=== PATIENT | female | born 1960 | race Caucasian/White ===

== ENCOUNTER → 2016-09-29 | Outpatient (CLI) | payer OTHER ==
[~2016-09-29] MED LIST: MULTTAB67 PO
[2016-09-29 07:17] LABS: BACTERIA, URINE OCC /hpf; BLOOD, URINE NEG (NEG); COMMENT (UR) CULT NOT INDICATED; CULTURE IF INDICATED CULT NOT INDICATED; GLUCOSE,URINE NEG (NEG); KETONE, URINE NEG (NEG); MUCUS URINE FEW /lpf (OCC); NITRITE,URINE NEG (NEG); SQUAMOUS EPITHELIAL CELL URINE 1 /hpf (0-5); URINE COLOR COLORLESS (YELLW/STRAW)
[2016-09-29 07:20] LABS: AUTOMATED NEUTROPHIL # 3.6 TH/MM3 (1.8-7.7); BASOPHIL % 0.1 % (0.0-2.0); EOSINOPHIL # 0.1 TH/MM3 (0-0.4); EOSINOPHIL % 1.8 % (0.0-4.0); HEMATOCRIT 41.5 % (35.0-46.0); HEMO FLAGS DIFF FINAL; LYMPHOCYTE # 1.2 TH/MM3 (1.0-4.8); MEAN CELL VOLUME 88.9 FL (80.0-100.0); MEAN CORPUSCULAR HEMOGLOBIN 30.5 PG (27.0-34.0); MEAN CORPUSCULAR HGB CONC 34.3 % (32.0-36.0); MONO % 10.7 % (0.0-8.0); NEUT % 65.4 % (16.0-70.0); PLATELET COUNT 286 TH/MM3 (150-450); RED BLOOD COUNT 4.68 MIL/MM3 (4.00-5.30); WHITE BLOOD COUNT 5.5 TH/MM3 (4.0-11.0)
[2016-09-29 07:49] LABS: ALKALINE PHOSPHATASE 73 U/L (45-117); ALT (GPT) 19 U/L (10-53); ANION GAP 8 MEQ/L (5-15); AST (GOT) 13 U/L (15-37); BICARBONATE 29.1 MEQ/L (21.0-32.0); BLOOD UREA NITROGEN 10 MG/DL (7-18); CHLORIDE 103 MEQ/L (98-107); FREE T4 1.13 NG/DL (0.76-1.46); GLOMERULAR FILTRATION RATE 98 ML/MIN (>89); GLUCOSE,FASTING 106 MG/DL (74-99); HDL CHOLESTEROL 53.4 MG/DL (40.0-60.0); LDL CHOLESTEROL 107 MG/DL (0-99); POTASSIUM 3.8 MEQ/L (3.5-5.1); SODIUM (NA) 140 MEQ/L (136-145); TOTAL BILIRUBIN ADULT 0.4 MG/DL (0.2-1.0)
[2016-09-29 10:27] LABS: HEMOGLOBIN A1a 0.9 %; HEMOGLOBIN A1b 1.6 %; HEMOGLOBIN Ao 86.4 %; HEMOGLOBIN LA1C 1.8 %; HEMOGLOBIN P3 3.3 %
== END ==
LOC: CLAB 06:46
PROVIDERS: ATTEND Nurse Practitioner Family
DX: R03.0 Elevated blood-pressure reading, without diagnosis of hypertension (principal); R73.01 Impaired fasting glucose; R78.5 Finding of other psychotropic drug in blood
CPT/HCPCS: 36415; 80053; 80061; 81001; 83036; 83735; 84439; 84443; 84480; 85025

== ENCOUNTER → 2017-11-07 | Outpatient (CLI) | payer BC ==
[~2017-11-07] MED LIST changes: +ALAVTAB PO; +IBUP-232 PO; +OXYC1TAB63 PO
[2017-11-07 12:15] LABS: MEAN CELL VOLUME 89.1 FL (80.0-100.0); MEAN CORPUSCULAR HEMOGLOBIN 31.2 PG (27.0-34.0); MEAN PLATELET VOLUME 7.7 FL (7.0-11.0); PLATELET COUNT 279 TH/MM3 (150-450); RED BLOOD COUNT 4.82 MIL/MM3 (4.00-5.30); RED CELL DISTRIBUTION WIDTH 12.8 % (11.6-17.2); WHITE BLOOD COUNT 5.5 TH/MM3 (4.0-11.0)
[2017-11-07 12:27] LABS: ALBUMIN 4.2 GM/DL (3.4-5.0); AST (GOT) 15 U/L (15-37); BICARBONATE 31.6 MEQ/L (21.0-32.0); BLOOD UREA NITROGEN 10 MG/DL (7-18); CALCIUM 9.3 MG/DL (8.5-10.1); CHLORIDE 104 MEQ/L (98-107); CREATININE 0.56 MG/DL (0.50-1.00); GLOMERULAR FILTRATION RATE 112 ML/MIN (>89); GLUCOSE,FASTING 88 MG/DL (74-99); SODIUM (NA) 140 MEQ/L (136-145)
[2017-11-07 12:29] LABS: ALT (GPT) 24 U/L (10-53)
[2017-11-07 12:30] LABS: ALKALINE PHOSPHATASE 95 U/L (45-117); TOTAL BILIRUBIN ADULT 0.4 MG/DL (0.2-1.0)
[2017-11-07 13:20] LABS: BACTERIA, URINE RARE /hpf; BILIRUBIN, URINE NEG (NEG); BLOOD, URINE SMALL (NEG); GLUCOSE,URINE NEG (NEG); KETONE, URINE NEG (NEG); MUCUS URINE FEW /lpf (OCC); NITRITE,URINE NEG (NEG); PH, URINE 5.5 (5.0-8.5); SQUAMOUS EPITHELIAL CELL URINE 3 /hpf (0-5); URINE COLOR YELLOW (YELLW/STRAW); URINE LEUKOCYTE ESTERASE SMALL (NEG)
--- NOTE | 2017-11-07 13:48 | RADRPT ---
EXAM DATE/TIME: 11/07/2017 13:18 [place] COMPARISON: No previous studies available for comparison. INDICATIONS : Evaluate for pneumonia, pneumothorax, or communicable disease. Pre-op hysterectomy. MEDICAL HISTORY : None. SURGICAL HISTORY : None. ENCOUNTER: Initial ACUITY: 1 day PAIN SCORE: 0/10 LOCATION: Bilateral chest FINDINGS: PA and lateral views of the chest demonstrate the lungs to be symmetrically aerated without evidence of mass, infiltrate or effusion. The cardiomediastinal contours are unremarkable. Osseous structure s are intact. CONCLUSION: No acute disease. Perico Albarran MD FACR on November 07, 2017 at 13:45 Board Certified Radiologist. This report was verified electronically.
--- NOTE | 2017-11-07 14:55 | EKG ---
Date Performed: 11/07/2017 Time Performed: 13:05:58 PTAGE: 57 years EKG: Sinus rhythm . rSr'(V1) - probable normal variant Septal T wave changes are nonspecific Low QRS voltages in precor dial leads Borderline ECG PREVIOUS TRACING : 10/15/2015 08.17 Since the previous tracing, no significant change noted DOCTOR: Jhon Fagan Interpretating Date/Time 11/07/2017 14:55:08
== END ==
LOC: CLAB 11:11
PROVIDERS: ATTEND Obstetrics & Gynecology
DX: D25.1 Intramural leiomyoma of uterus (principal); R82.90 Unspecified abnormal findings in urine; R94.31 Abnormal electrocardiogram [ECG] [EKG]
CPT/HCPCS: 36415; 71046; 80053; 81001; 85027; 86900; 86901; 87086; 93005

== ENCOUNTER 2017-11-13 05:44 | Inpatient (IN) | payer BC ==
[~2017-11-13] VITALS: Ht 154.9 cm; Wt 57.6 kg
[~2017-11-13 05:44] MED LIST changes: -IBUP-232 PO; -OXYC1TAB63 PO
[2017-11-13] MEDS ORDERED: ACETAMINOPHEN 1000 MG/100 ML 100 ML IV ONE (05:51)
[2017-11-13] MEDS ORDERED: CHLORHEXIDINE GLUCONATE 2 % 1 PACK (2 CLOTHS) TOPICAL PRN (06:15)
[2017-11-13] MEDS ORDERED: METOPROLOL TARTRATE 25 MG TAB PO PRN (06:15)
[2017-11-13] MEDS ORDERED: SODIUM CHLORID 0.9% 500 ML IV PRN (06:15)
[2017-11-13] MEDS ORDERED: LACTATED RINGER'S 1000 ML IV PRN (06:15)
[2017-11-13] MEDS ORDERED: ceFAZolin 2 GM/NS PREMIX 100 ML IV SCH (06:15)
[2017-11-13] MEDS ORDERED: POVIDONE IODINE 5% (ANTISEPSIS KIT) 4 APPLICATIONS EACH NARE PRN (06:15)
[2017-11-13] MEDS ORDERED: APREPITANT 40 MG CAP ONE (06:54)
[2017-11-13] MEDS ORDERED: FAMOTIDINE 20 MG/2 ML VIAL ONE (07:13)
[2017-11-13] MEDS ORDERED: ONDANSETRON HCL 4 MG/2 ML VIAL IV PUSH PRN (10:00)
[2017-11-13] MEDS ORDERED: NALOXONE HCL 0.4 MG/ML AMP IV PUSH PRN (10:00)
[2017-11-13] MEDS ORDERED: diphenhydrAMINE HCL 50 MG/ML VIAL IV PUSH PRN (10:00)
[2017-11-13] MEDS ORDERED: SUGAMMADEX SODIUM 200 MG/2 ML VIAL IV PUSH ONE (10:06)
[2017-11-13] MEDS ORDERED: DO NOT ADM ANY ANTICOAGULANT DRUGS PRN (10:21)
[2017-11-13] MEDS ORDERED: MIDAZOLAM HCL 2 MG/2 ML VIAL ONE (10:24)
[2017-11-13] MEDS ORDERED: SODIUM CHLORIDE 0.9% FLUSH 10 ML FLUSH IV FLUSH PRN (10:30)
[2017-11-13] MEDS ORDERED: ACETAMINOPHEN 325 MG TAB PO PRN (10:30)
[2017-11-13] MEDS ORDERED: IBUPROFEN 600 MG TAB PO PRN (10:30)
[2017-11-13] MEDS: LACTATED RINGER'S 1000 ML INJ 1,000 ML IV SCH ×2 (10:30→18:30)
[2017-11-13] MEDS ORDERED: *morphine SULFATE 8 MG/ML PERIprocedure ONLY ONE (10:42)
[2017-11-13] MEDS ORDERED: DOCUSATE SODIUM 100 MG CAP PO PRN (10:45)
--- NOTE | 2017-11-13 10:45 | MP ---
cc: Jennifer Simmons MD DATE OF OPERATION: PREOPERATIVE DIAGNOSIS: Enlarged uterus, fibroid uterus, pelvic pain. POSTOPERATIVE DIAGNOSIS: Enlarged uterus, fibroid uterus, pelvic pain. PROCEDURE: Examination under anesthesia, total abdominal hysterectomy, bilateral salpingo-oophorectomy. SURGEON: Dr. Simmons. [employer]: Sloane Mcfarlane. ANESTHESIA: General endotracheal anesthesia. FLUIDS: 2000 mL crystalloid. ESTIMATED BLOOD LOSS: 350 mL URINE OUTPUT: 500 mL clear yellow at the end of the procedure. FINDINGS: An 18-20 week sized uterus was noted on examination under anesthesia. OPERATIVE FINDINGS: Multiple fibroids were noted. A large 13 cm anterior fibroid was noted on the right side distorting the uterus posteriorly and to the left, as well as the bladder, normal tubes and ovaries were noted. PROCEDURE: The patient was taken to the operating room where general anesthesia was found to be adequate. She was then prepped and draped in the normal sterile fashion in the dorsal supine position. A Bowling catheter was inserted into the urinary bladder using sterile technique. A vertical midline incision was made with a scalpel and carried down to the underlying layer of fascia. The fascia was nicked in the midline. The incision was extended superiorly and inferiorly. The rectus muscles were then in the midline. The peritoneum was identified, grasped between two Allis clamps, elevated, and entered sharply with Metzenbaum scissors. This incision was extended superiorly and inferiorly with good visualization of the bladder. The large anterior fibroid was identified. A bladder blade was inserted. The round ligaments were identified, bilateral, clamped with Shawnee clamps, transected and suture ligated. The bladder flap was then dissected carefully off the anterior surface of the large anterior fibroid as well as the anterior uterus and cervix. The infundibulopelvic ligament on the left side was identified, clamped x 2 with Rojas clamps, transected and suture ligated. The broad ligaments and uterine artery were clamped, transected and suture ligated down to the level of the cervix on the left side. The large anterior fibroid was distorting the anatomy on the right side of the pelvis, so the decision was made to perform a myomectomy. The large fibroid was then shelled out from the serosa. The pedicles were clamped x 2 multiple times with Rojas clamps, transected and suture ligated. The fibroid was removed and sent to pathology. The infundibulopelvic ligament on the right side was identified, clamped with Rojas clamps, transected and suture ligated. The remaining broad ligament and uterine arteries were clamped, transected and suture ligated from the right side down to the level of the cervix. The uterus was then amputated and sent to pathology. The vaginal cuff was closed with several sutures of 0 Vicryl. Hemostasis was noted. The pelvis was irrigated. Surgicel powder was placed over the raw surfaces for hemostasis. All of the laparotomy sponges and instruments were removed from the abdominal cavity. The fascia was closed with PDS in a running fashion. The skin was closed in a subcuticular fashion with 4-0 Monocryl. Steri-Strips and a dressing were applied. The sponge, lap, needle and instrument counts were correct. Pathology was uterus, cervix, bilateral fallopian tubes and bilateral ovaries. The patient was transferred to recovery room in stable condition. MD MAYKEL Delgado/AIYANA , 10:21 AM , 10:44 AM ANDREAS
[2017-11-13] MEDS: HYDROmorphone HCL PCA 6 MG/30 ML IV SCH (10:52)
[2017-11-13] MEDS ORDERED: LACTATED RINGER'S 1000 ML INJ 2,000 ML IV ONE (12:00)
[2017-11-13] MEDS ORDERED: LIDOCAINE HCL 1% PF 5 ML SYRINGE OTHER ONE (12:00)
[2017-11-13] MEDS ORDERED: ROCURONIUM INJ 50 MG/5 ML SYRINGE IV PUSH ONE (12:00)
[2017-11-13] MEDS ORDERED: DEXAMETHASONE SOD PHOS 4 MG/ML VIAL IV ONE (12:00)
[2017-11-13] MEDS ORDERED: ePHEDrine/NS 25 MG/5 ML SYRINGE IV ONE (12:00)
[2017-11-13] MEDS ORDERED: PHENYLEPH/NS 1000 MCG/10 ML SYR IV ONE (12:00)
[2017-11-13] MEDS ORDERED: GLYCOPYRROLATE 1 MG/5 ML SYRINGE IV PUSH ONE (12:00)
[2017-11-13] MEDS ORDERED: ONDANSETRON HCL 4 MG/2 ML VIAL IV ONE (12:00)
[2017-11-13] MEDS ORDERED: NEOSTIGMINE 5 MG/5 ML SYRINGE IV PUSH ONE (12:00)
[2017-11-13] MEDS ORDERED: PROPOFOL 200 MG/20 ML AMP IV ONE (12:00)
[2017-11-13] MEDS ORDERED: KETOROLAC TROMETHAMINE 30 MG/ML (IVP) VIAL IV PUSH ONE (12:00)
[2017-11-13 12:06] VITALS: BP 159/81; PULSE 87; RESP 16; O2SAT 98
[2017-11-13 12:45] VITALS: BP 149/77; PULSE 86; RESP 20; O2SAT 95
[2017-11-13] MEDS: PCA - TOTAL MG DILAUDID DELIVERED PER SHIFT OTHER SCH ×2 (14:00→22:00)
[2017-11-13 15:33] VITALS: BP 158/90; PULSE 86; RESP 16; TEMP 97.7; O2SAT 95
[2017-11-13] MEDS ORDERED: PROMETHAZINE INJ 25 MG/ML VIAL IM PRN (17:00)
[2017-11-13 20:01] VITALS: BP 146/88; PULSE 95; RESP 17; TEMP 98.2
[2017-11-13] MEDS ORDERED: ZOLPIDEM TARTRATE 5 MG TAB PO PRN (21:00)
[2017-11-13] MEDS ORDERED: SODIUM CHLORIDE 0.9% FLUSH 10 ML FLUSH IV FLUSH SCH (21:00)
[2017-11-14 00:11] VITALS: BP 136/72; PULSE 102; RESP 17; TEMP 98.4
[2017-11-14] MEDS: LACTATED RINGER'S 1000 ML INJ 1,000 ML IV SCH (01:26)
[2017-11-14 04:10] VITALS: BP 150/84; PULSE 90; RESP 17; TEMP 99.3
[2017-11-14] MEDS: PCA - TOTAL MG DILAUDID DELIVERED PER SHIFT OTHER SCH (05:20)
[2017-11-14] MEDS: HYDROmorphone HCL PCA 6 MG/30 ML IV SCH (05:20)
[2017-11-14 05:58] LABS: HEMATOCRIT 32.3 % (35.0-46.0); HEMOGLOBIN 11.4 GM/DL (11.6-15.3); LYMPH % 6.5 % (9.0-44.0); LYMPHOCYTE # 0.9 TH/MM3 (1.0-4.8); MEAN CELL VOLUME 88.9 FL (80.0-100.0); MEAN CORPUSCULAR HEMOGLOBIN 31.3 PG (27.0-34.0); MEAN CORPUSCULAR HGB CONC 35.2 % (32.0-36.0); MEAN PLATELET VOLUME 7.2 FL (7.0-11.0); MONO % 10.2 % (0.0-8.0); MONOCYTE # 1.5 TH/MM3 (0-0.9); NEUT % 83.3 % (16.0-70.0); PLATELET COUNT 303 TH/MM3 (150-450); RED BLOOD COUNT 3.64 MIL/MM3 (4.00-5.30); RED CELL DISTRIBUTION WIDTH 12.9 % (11.6-17.2); WHITE BLOOD COUNT 14.4 TH/MM3 (4.0-11.0)
[2017-11-14 06:19] LABS: CREATININE 0.87 MG/DL (0.50-1.00)
[2017-11-14] MEDS ORDERED: oxyCODONE/ACETAMINOPHEN 5 MG/325 MG TAB PO PRN (07:00)
--- NOTE | 2017-11-14 07:54 | HHI.PR ---
Subjective Remarks Doing well, pain is well controlled, eating well. Objective Vital Signs Vital Signs Date Time Temp Pulse Resp B/P (MAP) Pulse Ox O2 Delivery O2 Flow Rate FiO2 11/14/17 05:20 16 11/14/17 05:20 16 11/14/17 04:10 99.3 90 17 150/84 (106) 11/14/17 00:11 98.4 102 17 136/72 (93) 11/13/17 22:00 18 11/13/17 20:01 98.2 95 17 146/88 (107) 11/13/17 15:33 97.7 86 16 158/90 (112) 95 11/13/17 14:00 16 11/13/17 12:45 86 20 149/77 (101) 95 11/13/17 12:06 87 16 159/81 (107) 98 11/13/17 11:30 70 16 150/77 (101) 95 Room Air 11/13/17 11:15 70 16 157/78 (104) 95 Room Air 11/13/17 11:00 66 16 146/76 (99) 96 Room Air 11/13/17 10:52 16 11/13/17 10:45 64 16 137/84 (101) 96 Room Air 11/13/17 10:30 66 16 155/78 (103) 98 Room Air 11/13/17 10:21 97.8 66 16 161/77 (105) 100 I/O 11/13/17 11/13/17 11/13/17 11/14/17 11/14/17 11/14/17 07:00 15:00 23:00 07:00 15:00 23:00 Intake Total 2100 ml 750 ml 2470 ml Output Total 1800 ml 375 ml 2900 ml Balance 300 ml 375 ml -430 ml Intake Oral 480 ml IV Total 2100 ml 750 ml 1990 ml Output Urine Total 1450 ml 375 ml 2900 ml Estimated Blood Loss 350 ml # Sanitary Pads 1 Pads Result Diagram: 11/14/17 0539 11/14/17538 Objective Remarks Chest is clear, regular rate and rhythm. Abdomen is soft and non-distended. dressing is clean and dry. Ext no CCE. A/P Assessment and Plan Post Op Day 1 CARA/BSO, large fibroid uterus Doing well Home today and return to office in two weeks. Jennifer Simmons MD Nov 14, 2017 07:54
[2017-11-14] MEDS ORDERED: OXYC1TAB63 PO (07:58)
[2017-11-14] MEDS ORDERED: IBUP-232 PO (07:58)
--- NOTE | 2017-11-14 07:58 | HHI.DCPOC ---
Discharge Care Plan Your Health Problems Are: Pelvic pain Report Symptoms to Your Doctor -Temperature above 100.5 degrees -Redness, of incision or excessive or foul smelling drainage -Unusual pain or calf pain -Increased vaginal bleeding -Painful or difficulty urinating -Feelings of extreme sadness or anxiety after 2 weeks Goals to Promote Your Health * To prevent worsening of your condition and complications * To maintain your health at the optimal level Directions to Meet Your Goals Take your medications as prescribed Follow your dietary instruction Follow activity as directed Ensure plenty of rest for recovery Drink fluids for hydration Keep your appointments as scheduled Take your immunizations and boosters as scheduled If your symptoms worsen call your PCP, if no PCP go to Urgent Care Center or Emergency Room Smoking is Dangerous to Your Health. Avoid second hand smoke Call the 24-hour crisis hotline for domestic abuse at Jennifer Simmons MD Nov 14, 2017 07:58
[2017-11-14 08:00] VITALS: BP 148/70; PULSE 111; RESP 20; TEMP 98.8
[2017-11-14] MEDS: oxyCODONE/ACETAMINOPHEN 10 MG/325 MG TAB PO PRN ×2 (08:14→12:25)
[2017-11-14 12:00] VITALS: BP 123/69; PULSE 83; RESP 18; TEMP 98.2; O2SAT 96
== END 2017-11-14 13:51 | disposition home or self-care (01) | DRG 743 ==
LOC: HSDC 05:44 → HSDI 10:03 → H1EA 11:44
PROVIDERS: ADMIT Obstetrics & Gynecology; ATTEND Obstetrics & Gynecology
PROC: 0UT70ZZ Resection of Bilateral Fallopian Tubes, Open Approach (ICD-10-PCS; 2017-11-13)
PROC: 0UT20ZZ Resection of Bilateral Ovaries, Open Approach (ICD-10-PCS; 2017-11-13)
PROC: 0UT90ZZ Resection of Uterus, Open Approach (ICD-10-PCS; principal; 2017-11-13 07:59)
DX: D25.9 Leiomyoma of uterus, unspecified (principal); R10.2 Pelvic and perineal pain
CPT/HCPCS: 82565; 85025; 86850; 86900; 86901; 88307; 94150; J0131; J1100; J1170; J1885; J2250; J2270; J2370; J2405; J2550; J2710; J3010; J7120; J8501